=== PATIENT | female | born 1975 | race Caucasian/White ===

== ENCOUNTER 2023-10-07 11:57 | Emergency (ER) | payer MEDICARE, MEDICAID ==
[~2023-10-07] VITALS: Ht 152.4 cm; Wt 85.9 kg
[2023-10-07 12:20] VITALS: TEMP 98
[2023-10-07] MEDS ORDERED: NS 1,000 ML IV SCH (12:45)
[2023-10-07] MEDS ORDERED: Pantoprazole 40 MG in NS 10 ML IV ONE (12:45)
[2023-10-07 12:47] LABS: BASO % 0.3 % (0.0-2.0); EOS # 0.1 K/mm3 (0.0-0.7); EOS % 0.6 % (0.0-4.0); GRAN # 6.8 K/mm3 (1.4-6.5); GRAN % 76.8 % (42.2-75.2); HEMATOCRIT 44.2 % (37.0-47.0); HEMOGLOBIN 14.8 g/dl (12.5-16.0); LYMPH % 10.9 % (20.0-51.0); MEAN CELL VOLUME 90 fl (80.0-100.0); MEAN CORPUSCULAR HEMOGLOBIN 30 pg (27-31); MEAN CORPUSCULAR HGB CONC 34 g/dl (33.0-37.0); MONO % 11.1 % (1.7-9.3); PLATELET COUNT 291 K/mm3 (130-400); RED BLOOD COUNT 4.94 M/mm3 (4.10-5.30); REDCELL DISTRIBUTION WIDTH-CV 14.3 % (11.5-14.5)
[2023-10-07 13:09] LABS: ALANINE AMINOTRANSFERASE 79 U/L (0-55); ALBUMIN 3.6 gm/dL (3.5-5.0); ALKALINE PHOSPHATASE 101 U/L (40-150); ANION GAP 14 mmol/L (7-16); AST,SGOT 91 U/L (5-34); BILIRUBIN,TOTAL 0.4 mg/dL (0.2-1.2); BLOOD UREA NITROGEN 13 mg/dL (10-20); CALCIUM 9.4 mg/dL (8.4-10.2); CARBON DIOXIDE 23 mmol/L (22-29); CHLORIDE 100 mmol/L (98-107); CREATININE, serum 1.25 mg/dL (0.57-1.11); GLUCOSE 139 mg/dL (70-99); LIPASE 12 U/L (8-78); POTASSIUM 4.2 mmol/L (3.5-4.5); SODIUM 137 mmol/L (136-145); TOTAL PROTEIN 7.5 gm/dL (6.2-8.1)
[2023-10-07 13:16] LABS: TROPONIN-I < 0.010 ng/mL (0.00-0.033)
[2023-10-07] MEDS ORDERED: HYDROmorphone 0.5 MG/0.5 ML SYRINGE IV ONE (13:30)
[2023-10-07] MEDS ORDERED: PREVACID 30MG30 M1 PO (14:43)
[2023-10-07 15:15] VITALS: BP 125/69; PULSE 113
== END 2023-10-07 15:38 | disposition home or self-care (01) ==
LOC: COL.ER 11:57
PROVIDERS: Family Medicine
DX: E86.0 Dehydration (principal); R10.84 Generalized abdominal pain; R11.10 Vomiting, unspecified; Z90.49 Acquired absence of other specified parts of digestive tract
CPT/HCPCS: C9113; J1170; J7030

== ENCOUNTER 2023-11-27 17:42 | Emergency (ER) | payer MEDICARE, MEDICAID ==
[~2023-11-27] VITALS: Ht 157.5 cm; Wt 82.3 kg
[~2023-11-27 17:42] MED LIST: DOXYCYCLINE 10100 MG PO; NORCO 325 MG-51 TAB PO; PREVACID 30MG30 M1 PO
[2023-11-27 17:57] VITALS: TEMP 98.6
[2023-11-27] MEDS ORDERED: oxyCODONE/Acetaminophen 7.5-325 MG TAB PO ONE (19:15)
[2023-11-27] MEDS ORDERED: Ketorolac 30 MG/ML VIAL IV ONE (19:15)
[2023-11-27] MEDS ORDERED: PERCOCET 325 MG1 TA2 PO (19:48)
[2023-11-27 20:00] VITALS: BP 120/80; PULSE 92
[2023-11-27] MEDS ORDERED: Home oxyCODONE/Acetaminophen 5/325 MG #4 TAB/PACK PO ONE (20:00)
== END 2023-11-27 20:02 | disposition home or self-care (01) ==
LOC: COL.ER 17:42
DX: G89.18 Other acute postprocedural pain (principal); M79.672 Pain in left foot
CPT/HCPCS: J1885